=== PATIENT | female | born 1975 | race Caucasian/White ===

== ENCOUNTER 2024-12-28 09:01 | Outpatient (CLI) | payer MEDICARE, MEDICAID, SELFPAY ==
--- NOTE | ~2024-12-28 | XR_ITS ---
XR abdomen/kub 1V Ordering provider: Emmanuelle Davison PA-C History: . kidney stone . Comparison: None. FINDINGS: BOWEL: Nonobstructive bowel gas pattern. ORGANOMEGALY: None. SIGNIFICANT PATHOLOGIC CALCIFICATIONS: None. OTHER: Stents are seen in the iliac arteries and in the aorta. No free air is seen under the diaphrag m. IMPRESSION: NO ACUTE ABDOMINAL FINDINGS. Iliac arteries and distal aortic stents are noted. No definite stones seen. Noncontrast CT abdomen is better for evaluation. Reviewed, dictated and finalized at location A.
== END 2024-12-28 09:02 | disposition home or self-care (01) ==
PROVIDERS: PCP Internal Medicine; Visit Provider Physician Assistant
DX: Z87.442 Personal history of urinary calculi (principal)
CPT/HCPCS: 74018